=== PATIENT | male | born 1965 | race Caucasian/White ===

== ENCOUNTER 2017-09-08 18:06 | Emergency (ER) | payer OTHER ==
[2017-09-08 18:09] VITALS: BP 140/87; PULSE 90; RESP 14; TEMP 98.2; O2SAT 97
--- NOTE | 2017-09-08 18:45 | RADRPT ---
EXAM DATE/TIME: 09/08/2017 18:34 [facility] COMPARISON: No previous studies available for comparison. INDICATIONS : Palpitations MEDICAL HISTORY : Cardiovascular disease. SURGICAL HISTORY : Coronary artery stent. ENCOUNTER: Initial ACUITY: 1 day PAIN SCORE: 0/10 LOCATION: chest FINDINGS: PA and lateral views of the chest demonstrate a normal-sized cardiac silhouette. There is no effusion , consolidation, or pneumothorax. The bones and soft tissues demonstrate no acute abnormality. There are degenerative changes of the thoracic spine. CONCLUSION: No acute cardiopulmonary abnormality is identified. Zechariah Wick MD on September 08, 2017 at 18:43 Board Certified Radiologist. This report was verified electronically.
[2017-09-08] MEDS ORDERED: METF500T PO (20:21)
[2017-09-08] MEDS ORDERED: GLIP5TAB8 PO (20:21)
[2017-09-08] MEDS ORDERED: VALS320T4 PO (20:21)
[2017-09-08] MEDS ORDERED: ATEN50TA PO (20:21)
--- NOTE | 2017-09-08 20:30 | PD ---
HPI Chief Complaint: Cardiac Complaint Time Seen by Provider: 20:29 Travel History International Travel<30 days: No Contact w/Intl Traveler<30days: No Traveled to known affect area: No History of Present Illness HPI The patient is a 52 year old male who presents to the [facility] emergency department with a history of palpitations and sensation that his heart was " flip flopping" that began at 4:30AM. He denies having a sensation of his heart racing. He denies any chest pain or shortness of breath. He denies ever having a sensation like this previously. He is visiting from out of town. He reports that he was already preparing to go to work when the symptoms began. He reports that he normally drinks 1 cup of coffee daily, however he did not have any this morning. He drinks alcohol only occasionally, none recently. The patient denies consistently taking an aspirin daily. He did not take an aspirin today. The patient's past cardiac history is, located by having a prior history of coronary artery disease with 3 prior stents placed. He reports that his last chemical stress test was done 6 months ago are reportedly unremarkable. She does have a vice president [employer] that he regularly sees back home. Review of systems otherwise, the patient denies having any known recent fevers, cough, congestion, neck pain, abdominal pain, vomiting, diarrhea, urinary symptoms, or neurologic symptoms. The patient has been moving his bowels regularly. His last bowel movement was earlier today. He denies having any blood in his stool or black or tarry stools. PFSH Past Medical History Narrative Medical The patient's past medical history is significant for coronary artery disease with 3 stents, hypertension. His last stress test was 6 months ago, GERD, Barretts esophagus, Diabetes mellitus Heart Rhythm Problems: Yes Cardiovascular Problems: Yes (HTN, CAD) Diabetes: Yes Patient Takes Glucophage: No Past Surgical History Narrative Surgical The patient's past surgical history is significant cardiac cath with stent placed last 2009, nasal fx repair, endoscopy. Cardiac Surgery: Yes (cardiac stents) Social History Alcohol Use: No Tobacco Use: No Substance Use: No Allergies-Medications (Allergen,Severity, Reaction): Coded Allergies: No Known Allergies (Verified Allergy, Unknown, 09/08/17) Reported Meds & Prescriptions Reported Meds & Active Scripts Active Reported Valsartan-Hydrochlorothiazide 320-12.5 Mg Tab 1 Tab PO DAILY Metformin (Metformin HCl) 500 Mg Tab 500 Mg PO DAILY With a meal Glipizide 5 Mg Tab 5 Mg PO BIDAC Take 30 minutes before a meal Atenolol 50 Mg Tab 50 Mg PO DAILY Review of Systems Except as stated in HPI: all other systems reviewed are Neg General / Constitutional: No: Fever Eyes: No: Visual changes HENT: No: Headaches Cardiovascular: No: Chest Pain or Discomfort Respiratory: No: Shortness of Breath Gastrointestinal: No: Nausea, Vomiting, Diarrhea, Abdominal Pain Genitourinary: No: Dysuria Musculoskeletal: No: Pain Skin: No Rash Neurologic: No: Weakness, Focal Abnormalities, Change in Mentation, Slurred Speech, Sensory Disturbance Psychiatric: No: Depression Endocrine: No: Polydipsia Hematologic/Lymphatic: No: Easy Bruising Physical Exam Narrative General: The patient is a well-developed well-nourished male in no acute distress. Head and Neck exam: Head is normocephalic atraumatic. Eyes: EOMI, pupils are equal round and reactive to light. Nose: Midline septum with pink mucous membranes Mouth: Dentition unremarkable. Moist mucus membranes. Posterior oropharynx is not erythematous. No tonsillar hypertrophy. Uvula midline. Airway patent. Neck: No palpable lymphadenopathy. No nuchal rigidity. No thyromegaly. Cardiovascular: Regular rate and rhythm without murmurs, gallops, or rubs. Lungs: Clear to auscultation bilaterally. No wheezes, rhonchi, or rales. Abdomen: Soft, without tenderness to palpation in all 4 quadrants of the abdomen. No guarding, rebound, or rigidity. Normal bowel sounds are audible. No tenderness on palpation of McBurney's point. Extremities: No clubbing, cyanosis, or edema. 2+ pulses in all 4 extremities. No calf tenderness on palpation. Back: No spinous process tenderness to palpation. No costovertebral angle tenderness to palpation. Neurologic Exam: Grossly nonfocal. Skin Exam: No rash noted. Intact skin that is warm and dry. Data Data Last Documented VS Vital Signs Date Time Temp Pulse Resp B/P (MAP) Pulse Ox O2 Delivery O2 Flow Rate FiO2 09/08/17 20:11 97 Room Air 09/08/17 18:09 98.2 90 14 140/87 (104) Orders Orders Electrocardiogram (09/08/17 18:22) Basic Metabolic Panel (Bmp) (09/08/17 18:22) Ckmb (Isoenzyme) Profile (09/08/17 18:22) Complete Blood Count With Diff (09/08/17 18:22) Magnesium (Mg) (09/08/17 18:22) Prothrombin Time / Inr (Pt) (09/08/17 18:22) Act Partial Throm Time (Ptt) (09/08/17 18:22) Troponin I (09/08/17 18:) Chest, Pa & Lat (09/08/17 18:22) Iv Access Insert/Monitor (09/08/17 20:31) Ecg Monitoring (09/08/17 20:31) Oximetry (09/08/17 20:31) Thyroid Stimulating Hormone (09/08/17 19:35) Aspirin Chew (Aspirin Chew) (09/08/17 21:00) CKMB (09/08/17 19:35) CKMB% (09/08/17 19:35) Ed Discharge Order (09/08/17 21:43) Labs Laboratory Tests Test 09/08/17 19:35 White Blood Count 10.3 TH/MM3 Red Blood Count 4.65 MIL/MM3 Hemoglobin 14.4 GM/DL Hematocrit 42.1 % Mean Corpuscular Volume 90.6 FL Mean Corpuscular Hemoglobin 31.0 PG Mean Corpuscular Hemoglobin Concent 34.3 % Red Cell Distribution Width 13.5 % Platelet Count 280 TH/MM3 Mean Platelet Volume 8.2 FL Neutrophils (%) (Auto) 55.3 % Lymphocytes (%) (Auto) 32.4 % Monocytes (%) (Auto) 10.1 % Eosinophils (%) (Auto) 1.4 % Basophils (%) (Auto) 0.8 % Neutrophils # (Auto) 5.7 TH/MM3 Lymphocytes # (Auto) 3.3 TH/MM3 Monocytes # (Auto) 1.0 TH/MM3 Eosinophils # (Auto) 0.1 TH/MM3 Basophils # (Auto) 0.1 TH/MM3 CBC Comment DIFF FINAL Differential Comment Prothrombin Time 11.3 SEC Prothromb Time International Ratio 1.0 RATIO Activated Partial Thromboplast Time 26.8 SEC Blood Urea Nitrogen 14 MG/DL Creatinine 0.96 MG/DL Random Glucose 100 MG/DL Calcium Level 9.3 MG/DL Magnesium Level 1.8 MG/DL Sodium Level 139 MEQ/L Potassium Level 3.5 MEQ/L Chloride Level 104 MEQ/L Carbon Dioxide Level 28.2 MEQ/L Anion Gap 7 MEQ/L Estimat Glomerular Filtration Rate 82 ML/MIN Total Creatine Kinase 201 U/L Creatine Kinase MB 3.6 NG/ML Troponin I LESS THAN 0.02 NG/ML Thyroid Stimulating Hormone 3rd Gen 2.560 uIU/ML MDM Medical Decision Making Medical Screen Exam Complete: Yes Emergency Medical Condition: Yes Medical Record Reviewed: Yes Interpretation(s) Last Impressions Chest X-Ray 09/08/17 1822 Signed Impressions: Service Date/Time: Friday, September 08, 2017 18:34 - CONCLUSION: No acute cardiopulmonary abnormality is identified. Zechariah Wick MD Differential Diagnosis Premature atrial contractions, versus PVCs, versus paroxysmal atrial fibrillation, versus electrolyte derangements, versus acute coronary syndrome Narrative Course During the course of the patients emergency department visit, the patients history, examination, and differential diagnosis were reviewed with the patient. The patient was placed on a panel monitor with oximetry and frequent blood pressure monitoring. The patient had IV access obtained and blood work sent for analysis. The patient had an ECG done on arrival. The patient's ECG reveals a sinus rhythm, heart rate of 72, incomplete right bundle branch block is noted, no acute ST segment elevation, T waves are inverted in lead 3, V1. QRS duration is 109 ms, QTC 402 ms. The patient was initially provided aspirin 324 mg by mouth 1. The patients laboratory studies were reviewed and remarkable for a white count of 10.3, hemoglobin 14.4, platelets 280 with 10.1 monocytes, basic metabolic profile is remarkable for a GFR of 82, CPK 201, CK-MB 3.6, troponin I less than 0.02, TSH 2.56, PT PTT within normal limits. Radiology studies were reviewed and remarkable for a chest x-ray that shows no acute cardiopulmonary abnormality. As the patient is visiting from out of town and reports that he is planning to go back home tomorrow and the patient is currently asymptomatic. The patient will be discharged home to follow-up with his vice president [employer] as an outpatient. The patient is instructed that if he has a recurrence of symptoms he should immediately report to the emergency department an order for an ECG to be done to evaluate for another underlying cardiac arrhythmia. He is also instructed to check his pulse when this occurs to see if it is elevated greater than 100. The patient is instructed to avoid caffeine and alcohol. Follow-up with your vice president [employer] as soon as they return back home. The patient is resting comfortably and feels better, is alert and in no distress. The patients results and examination findings were discussed with the patient. The repeat examination is unremarkable and benign. The history, exam, diagnostic testing, and current condition do not suggest any significant pathology to warrant further testing, continued ED treatment, admission, or surgical evaluation at this point. The vital signs have been stable. The patient does not have uncontrollable pain, intractable vomiting, or other significant symptoms. The patient's condition is stable and appropriate for discharge. The patient will pursue further outpatient evaluation with a primary care physician or other designated or consulting physician as indicated in the discharge instructions. The patient expressed understanding and was agreeable with this plan. Diagnosis Primary Impression: Intermittent palpitations Referrals: [employer] Primary Care Physician Patient Instructions: General Instructions, Heart Palpitations (ED) Additional Instructions: Do not forget to take a low-dose aspirin daily. The patient is instructed that if he has a recurrence of symptoms he should immediately report to the emergency department an order for an ECG to be done to evaluate for another underlying cardiac arrhythmia. He is also instructed to check his pulse when this occurs to see if it is elevated greater than 100. The patient is instructed to avoid caffeine and alcohol. Follow-up with your vice president [employer] as soon as they return back home. Med/Other Pt SpecificInfo: No Change to Meds Disposition: 01 DISCHARGE HOME Condition: Stable Skylar Pulido MD Sep 08, 2017 20:30
[2017-09-08 20:36] LABS: AUTOMATED NEUTROPHIL # 5.7 TH/MM3 (1.8-7.7); BASOPHIL # 0.1 TH/MM3 (0-0.2); BASOPHIL % 0.8 % (0.0-2.0); EOSINOPHIL # 0.1 TH/MM3 (0-0.4); EOSINOPHIL % 1.4 % (0.0-4.0); HEMATOCRIT 42.1 % (39.0-51.0); HEMO FLAGS DIFF FINAL; LYMPH % 32.4 % (9.0-44.0); LYMPHOCYTE # 3.3 TH/MM3 (1.0-4.8); MEAN CELL VOLUME 90.6 FL (80.0-100.0); MEAN CORPUSCULAR HGB CONC 34.3 % (32.0-36.0); MONO % 10.1 % (0.0-8.0); NEUT % 55.3 % (16.0-70.0); PLATELET COUNT 280 TH/MM3 (150-450); RED BLOOD COUNT 4.65 MIL/MM3 (4.50-5.90); RED CELL DISTRIBUTION WIDTH 13.5 % (11.6-17.2); WHITE BLOOD COUNT 10.3 TH/MM3 (4.0-11.0)
[2017-09-08 20:56] LABS: ANION GAP 7 MEQ/L (5-15); BICARBONATE 28.2 MEQ/L (21.0-32.0); BLOOD UREA NITROGEN 14 MG/DL (7-18); CHLORIDE 104 MEQ/L (98-107); GLOMERULAR FILTRATION RATE 82 ML/MIN (>89); MAGNESIUM 1.8 MG/DL (1.5-2.5); POTASSIUM 3.5 MEQ/L (3.5-5.1); SODIUM (NA) 139 MEQ/L (136-145)
[2017-09-08 20:59] LABS: APTT (PATIENT) 26.8 SEC (24.3-30.1); PROTHROMBIN TIME - PATIENT 11.3 SEC (9.8-11.6)
[2017-09-08] MEDS ORDERED: ASPIRIN 81 MG CHEW TAB CHEW ONE (21:00)
[2017-09-08 21:05] LABS: CREATINE KINASE 201 U/L (39-308)
[2017-09-08 21:17] LABS: CKMB 3.6 NG/ML (0.5-3.6)
--- NOTE | 2017-09-09 18:34 | EKG ---
Date Performed: 09/08/2017 Time Performed: 19:52:45 PTAGE: 52 years EKG: Sinus rhythm INCOMPLETE RIGHT BUNDLE BRANCH BLOCK NONSPECIFIC T-WAVE ABNORMALITY BORDERLINE ECG NO PREVIOUS TRACING DOCTOR: Arlene Marcelo Interpretating Date/Time 09/09/2017 18:32:46
== END 2017-09-08 22:56 | disposition home or self-care (01) ==
LOC: NEPC 18:06
DX: R00.2 Palpitations (principal); E11.9 Type 2 diabetes mellitus without complications; I10 Essential (primary) hypertension; I25.10 Atherosclerotic heart disease of native coronary artery without angina pectoris; I45.10 Unspecified right bundle-branch block; Z79.84 Long term (current) use of oral hypoglycemic drugs; Z79.899 Other long term (current) drug therapy; Z95.5 Presence of coronary angioplasty implant and graft
CPT/HCPCS: 71020; 80048; 82550; 82552; 83735; 84443; 84484; 85025; 85610; 85730; 93005

== ENCOUNTER 2017-12-06 20:52 | Observation (INO) | payer OTHER ==
[2017-12-06] VITALS (8 sets, daily range): BP systolic 113–179; BP diastolic 61–93; PULSE 75–99; RESP 18–20; TEMP 98; O2SAT 95–98
[~2017-12-06] VITALS: Ht 185.4 cm; Wt 115.0 kg
[~2017-12-06 20:52] MED LIST: ATEN50TA PO; GLIP5TAB8 PO; METF500T PO; VALS320T4 PO
--- NOTE | 2017-12-06 21:13 | PD ---
HPI Chief Complaint: Chest Pain Time Seen by Provider: 21:01 Travel History International Travel<30 days: No Contact w/Intl Traveler<30days: No Traveled to known affect area: No History of Present Illness HPI 52-year-old male with history of coronary artery disease with 3 stents, hypertension, hyperlipidemia, diabetes, presents by private vehicle for evaluation of chest pain. Symptoms started at 5 PM this evening when he was standing in line at a phone store. He is currently staying at a hotel. He reports that he went home and tried to relax but the pain persisted and this is what prompted evaluation. He is currently experiencing mild pain. He describes it as a pressure in the left side of his chest that radiates into the proximal left arm. He reports that he has had similar chest pain in the past when he had his stents placed. He endorses generalized head pressure today as well. He reports he has been having intermittent headaches for the past 2 weeks. No aggravating or alleviating factors. He is supposed to take aspirin on a daily basis but he forgets sometimes, did not take any today. He denies shortness of breath, nausea or vomiting, diaphoresis, weakness, blurred vision. He believes that his last stress test was 2 years ago. 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 He has been in town working at a local [employer] for the past 7 months. He has no other complaints at this time. [facility] Past Medical History Heart Rhythm Problems: Yes Cardiovascular Problems: Yes (HTN, CAD) Diabetes: Yes Patient Takes Glucophage: Yes Hypertension: Yes Immunizations Current: Yes Tetanus Vaccination: < 5 Years Influenza Vaccination: Yes Past Surgical History Cardiac Surgery: Yes (cardiac stents) Social History Alcohol Use: No Tobacco Use: No Substance Use: No Allergies-Medications (Allergen,Severity, Reaction): Coded Allergies: celecoxib (Verified Allergy, Unknown, 12/06/17) rofecoxib (Verified Allergy, Unknown, 12/06/17) Reported Meds & Prescriptions Reported Meds & Active Scripts Active Reported Aspirin 325 Mg Tab 325 Mg PO DAILY Pantoprazole (Pantoprazole Sodium) 40 Mg Tab 1 Tab PO DAILY Metformin (Metformin HCl) 1,000 Mg Tab 1,000 Mg PO DAILY With a meal Valsartan-Hctz 320-25 mg Tab (Valsartan/Hydrochlorothiazide) 320 Mg-25 Mg Tablet 1 Tab PO DAILY Glipizide 5 Mg Tab 5 Mg PO BIDAC Take 30 minutes before a meal Atenolol 50 Mg Tab 50 Mg PO DAILY Review of Systems Except as stated in HPI: all other systems reviewed are Neg Physical Exam Narrative GENERAL: Well-developed well-nourished male in no acute distress. SKIN: Warm and dry. HEAD: Atraumatic. Normocephalic. EYES: Pupils equal and round. No scleral icterus. No injection or drainage. ENT: No nasal bleeding or discharge. Mucous membranes pink and moist. NECK: Trachea midline. No JVD. CARDIOVASCULAR: Regular rate and rhythm. No murmur appreciated. RESPIRATORY: No accessory muscle use. Clear to auscultation. Breath sounds equal bilaterally. GASTROINTESTINAL: Abdomen soft, non-tender, nondistended. Hepatic and splenic margins not palpable. MUSCULOSKELETAL: No obvious deformities. No clubbing. No cyanosis. No edema. NEUROLOGICAL: Awake and alert. No obvious cranial nerve deficits. Motor grossly within normal limits. Normal speech. PSYCHIATRIC: Appropriate mood and affect; insight and judgment normal. Data Data Last Documented VS Vital Signs Date Time Temp Pulse Resp B/P (MAP) Pulse Ox O2 Delivery O2 Flow Rate FiO2 12/06/17 22:10 81 18 115/82 (93) 95 Room Air 12/06/17 20:55 98.0 Orders Orders Electrocardiogram (12/06/17 21:09) Basic Metabolic Panel (Bmp) (12/06/17 21:09) Ckmb (Isoenzyme) Profile (12/06/17 21:09) Complete Blood Count With Diff (12/06/17 21:09) Magnesium (Mg) (12/06/17 21:09) Prothrombin Time / Inr (Pt) (12/06/17 21:09) Act Partial Throm Time (Ptt) (12/06/17 21:09) Troponin I (12/06/17 21:09) Chest, Single Ap (12/06/17 21:09) Ecg Monitoring (12/06/17 21:09) Bilateral Bp Monitoring (12/06/17 21:09) Iv Access Insert/Monitor (12/06/17 21:09) Oximetry (12/06/17 21:09) Oxygen Administration (12/06/17 21:09) Sodium Chloride 0.9% Flush (Ns Flush) (12/06/17 21:15) Nitroglycerin Sl (Nitrostat Sl) (12/06/17 21:15) Ct Brain W/O Iv Contrast(Rout) (12/06/17 ) Aspirin Chew (Aspirin Chew) (12/06/17 21:45) CKMB (12/06/17 21:44) CKMB% (12/06/17 21:44) Admit Order (Ed Use Only) (12/06/17 22:47) Acetaminophen (Tylenol) (12/06/17 23:00) Activity Bed Rest With Brp (12/06/17 22:47) Vital Signs (Adult) Q4H (12/06/17 22:47) Cardiac Rhythm .As Directed (12/06/17 22:47) Notify Dr: Other .PRN (12/06/17 22:47) Notify Parameters (12/06/17 22:47) Resp Oxygen Nasal Cannula (12/06/17 ) Ckmb (Isoenzyme) Profile (12/07/17 00:44) Ckmb (Isoenzyme) Profile (12/07/17 03:44) Troponin I (12/07/17 00:44) Troponin I (12/07/17 03:44) Electrocardiogram (12/07/17 00:44) Electrocardiogram (12/07/17 03:44) ^ Obtain (12/06/17 22:47) Sodium Chloride 0.9% Flush (Ns Flush) (12/06/17 23:00) Sodium Chloride 0.9% Flush (Ns Flush) (12/07/17 09:00) Npo After Midnight W/ Po Meds (12/07/17 Breakfast) Labs Laboratory Tests Test 12/06/17 21:44 White Blood Count 8.6 TH/MM3 Red Blood Count 4.80 MIL/MM3 Hemoglobin 15.0 GM/DL Hematocrit 42.8 % Mean Corpuscular Volume 89.0 FL Mean Corpuscular Hemoglobin 31.2 PG Mean Corpuscular Hemoglobin Concent 35.0 % Red Cell Distribution Width 13.6 % Platelet Count 257 TH/MM3 Mean Platelet Volume 7.8 FL Neutrophils (%) (Auto) 58.8 % Lymphocytes (%) (Auto) 28.1 % Monocytes (%) (Auto) 10.9 % Eosinophils (%) (Auto) 1.5 % Basophils (%) (Auto) 0.7 % Neutrophils # (Auto) 5.1 TH/MM3 Lymphocytes # (Auto) 2.4 TH/MM3 Monocytes # (Auto) 0.9 TH/MM3 Eosinophils # (Auto) 0.1 TH/MM3 Basophils # (Auto) 0.1 TH/MM3 CBC Comment DIFF FINAL Differential Comment Prothrombin Time 11.6 SEC Prothromb Time International Ratio 1.1 RATIO Activated Partial Thromboplast Time 27.5 SEC Blood Urea Nitrogen 14 MG/DL Creatinine 1.21 MG/DL Random Glucose 158 MG/DL Calcium Level 9.1 MG/DL Magnesium Level 2.0 MG/DL Sodium Level 140 MEQ/L Potassium Level 3.6 MEQ/L Chloride Level 107 MEQ/L Carbon Dioxide Level 26.7 MEQ/L Anion Gap 6 MEQ/L Estimat Glomerular Filtration Rate 63 ML/MIN Total Creatine Kinase 348 U/L Creatine Kinase MB 3.8 NG/ML Creatine Kinase MB % 1.1 % Troponin I LESS THAN 0.02 NG/ML MDM Medical Decision Making Medical Screen Exam Complete: Yes Emergency Medical Condition: Yes Medical Record Reviewed: Yes Differential Diagnosis Angina, acute coronary syndrome, aortic dissection, pleurisy, pericarditis, myocarditis, hypertensive urgency, hypertensive emergency Narrative Course The patient was placed on ECG monitoring pulse oximetry. A 12-lead EKG was obtained revealing sinus rhythm, incomplete right bundle branch block, no acute ST changes. T-wave inversion noted in V6. Plan is for lab work, chest x-ray, CT the brain. Sublingual nitroglycerin has been ordered. CT the brain came back normal and therefore full dose aspirin was ordered. Chest x-ray reveals no acute abnormalities. CBC, BMP unremarkable. Initial set of cardiac enzymes are negative. Given the patient's risk factors, symptoms, the patient will be admitted to the chest pain center for serial cardiac enzymes and rule out purposes. He is agreeable. Diagnosis Primary Impression: Chest pain Admitting Information Admitting Physician Requests: Brian Padilla Dec 06, 2017 21:13
[2017-12-06] MEDS ORDERED: SODIUM CHLORIDE 0.9% FLUSH 10 ML FLUSH IVF PRN (21:15)
--- NOTE | 2017-12-06 21:39 | RADRPT ---
EXAM DATE/TIME: 12/06/2017 21:18 [facility] COMPARISON: CHEST PA & LAT, September 08, 2017, 18:34. INDICATIONS : Chest pain. MEDICAL HISTORY : Hypertension. Diabetes. SURGICAL HISTORY : Cardiac stent. ENCOUNTER: Initial ACUITY: 1 day PAIN SCORE: 10/10 LOCATION: Bilateral chest FINDINGS: The lungs are clear without infiltrate, nodule, or mass. There is no appreciable pleural effusion fo r technique. Heart and mediastinum are unremarkable. CONCLUSION: No acute cardiopulmonary disease. Yolande Cross MD on December 06, 2017 at 21:37 Board Certified Radiologist. This report was verified electronically.
--- NOTE | 2017-12-06 21:40 | RADRPT ---
EXAM DATE/TIME: 12/06/2017 21:25 [facility] COMPARISON: No previous studies available for comparison. INDICATIONS : Headaches. RADIATION DOSE: 69.15 CTDIvol (mGy) MEDICAL HISTORY : Cardiovascular disease. Hypertension. Diabetes mellitus type 2. SURGICAL HISTORY : Coronary artery stent. ENCOUNTER: Initial ACUITY: 1 day PAIN SCALE: 7/10 LOCATION: Bilateral cranial TECHNIQUE: Multiple contiguous axial images were obtained of the head. Using automated exposure control and adj ustment of the mA and/or kV according to patient size, radiation dose was kept as low as reasonably a chievable to obtain optimal diagnostic quality images. DICOM format image data is available electro nically for review and comparison. FINDINGS: There is no evidence for intracranial hemorrhage, mass effect, mass lesions, edema, or extra-axial fl uid collections. The visualized bony structures appear intact. The ventricles are normal size for t he patient's age. There are no signs of acute infarction for technique. CONCLUSION: Unremarkable study. Yolande Cross MD on December 06, 2017 at 21:37 Board Certified Radiologist. This report was verified electronically.
[2017-12-06] MEDS ORDERED: ASPIRIN 81 MG CHEW TAB CHEW ONE (21:45)
[2017-12-06] MEDS ORDERED: METF1000 PO (21:56)
[2017-12-06] MEDS ORDERED: PANT40TA3 PO (21:56)
[2017-12-06] MEDS ORDERED: VALS320T6 PO (21:56)
[2017-12-06] MEDS ORDERED: ASPI-183 PO (21:56)
[2017-12-06 21:57] LABS: AUTOMATED NEUTROPHIL # 5.1 TH/MM3 (1.8-7.7); BASOPHIL # 0.1 TH/MM3 (0-0.2); BASOPHIL % 0.7 % (0.0-2.0); EOSINOPHIL # 0.1 TH/MM3 (0-0.4); EOSINOPHIL % 1.5 % (0.0-4.0); HEMATOCRIT 42.8 % (39.0-51.0); LYMPH % 28.1 % (9.0-44.0); LYMPHOCYTE # 2.4 TH/MM3 (1.0-4.8); MEAN CORPUSCULAR HEMOGLOBIN 31.2 PG (27.0-34.0); MEAN PLATELET VOLUME 7.8 FL (7.0-11.0); MONO % 10.9 % (0.0-8.0); MONOCYTE # 0.9 TH/MM3 (0-0.9); NEUT % 58.8 % (16.0-70.0); PLATELET COUNT 257 TH/MM3 (150-450); RED CELL DISTRIBUTION WIDTH 13.6 % (11.6-17.2); WHITE BLOOD COUNT 8.6 TH/MM3 (4.0-11.0)
[2017-12-06] MEDS: NITROGLYCERIN 0.4 MG SL 25 TABS/BTL SL SCH ×3 (22:03→22:13)
[2017-12-06 22:08] LABS: BICARBONATE 26.7 MEQ/L (21.0-32.0); BLOOD UREA NITROGEN 14 MG/DL (7-18); CALCIUM 9.1 MG/DL (8.5-10.1); CHLORIDE 107 MEQ/L (98-107); CREATININE 1.21 MG/DL (0.60-1.30); GLOMERULAR FILTRATION RATE 63 ML/MIN (>89); GLUCOSE,RANDOM 158 MG/DL (74-106); SODIUM (NA) 140 MEQ/L (136-145)
[2017-12-06 22:09] LABS: INTERNATIONAL NORMALIZED RATIO 1.1 RATIO; PROTHROMBIN TIME - PATIENT 11.6 SEC (9.8-11.6)
[2017-12-06 22:12] LABS: TROPONIN I LESS THAN 0.02 NG/ML (0.02-0.05)
[2017-12-06] MEDS ORDERED: ACETAMINOPHEN 325 MG TAB PO ONE (23:00)
[2017-12-06] MEDS ORDERED: SODIUM CHLORIDE 0.9% FLUSH 10 ML FLUSH IV FLUSH PRN (23:00)
[2017-12-07 00:34] VITALS: BP 105/57; PULSE 69; RESP 18; TEMP 98.2; O2SAT 96
[2017-12-07 02:20] LABS: TROPONIN I LESS THAN 0.02 NG/ML (0.02-0.05)
[2017-12-07 04:05] VITALS: BP 110/68; PULSE 70; RESP 17; TEMP 98; O2SAT 97
[2017-12-07 04:45] LABS: TROPONIN I LESS THAN 0.02 NG/ML (0.02-0.05)
[2017-12-07 07:24] VITALS: PULSE 63
[2017-12-07 08:08] VITALS: BP 133/85; PULSE 72; RESP 18; TEMP 98.1; O2SAT 98
[2017-12-07] MEDS ORDERED: GLUCAGON 1 MG/ML VIAL OTHER PRN (08:30)
[2017-12-07] MEDS ORDERED: DEXTROSE 50% IN WATER 50 ML VIAL(D50) IV PUSH PRN (08:30)
[2017-12-07] MEDS ORDERED: HYDROCHLOROTHIAZIDE PO SCH (09:00)
[2017-12-07] MEDS ORDERED: VALSARTAN 160 MG TAB PO SCH (09:00)
[2017-12-07] MEDS ORDERED: PANTOPRAZOLE SOD 40 MG DELAYED RELEASE TAB PO SCH (09:00)
[2017-12-07] MEDS ORDERED: SODIUM CHLORIDE 0.9% FLUSH 10 ML FLUSH IV FLUSH SCH (09:00)
[2017-12-07] MEDS ORDERED: HYDROCHLOROTHIAZIDE 25 MG TAB PO SCH (09:00)
[2017-12-07] MEDS ORDERED: ASPIRIN 325 MG TAB PO SCH (09:00)
[2017-12-07] MEDS ORDERED: ATENOLOL 50 MG TAB PO SCH ×2 (09:00→16:00)
[2017-12-07] MEDS ORDERED: VALSARTAN PO SCH (09:00)
[2017-12-07] MEDS ORDERED: REGADENOSON INJ 0.4 MG/5 ML SYR ONE (09:47)
--- NOTE | 2017-12-07 10:12 | HHI.HP ---
HPI Primary Care Physician No Primary Care Physician Chief Complaint Chest pain History of Present Illness This is a 52-year-old male with history of CAD, hypertension, hyperlipidemia, diabetes that presents to ED with a complaint of chest discomfort. Days he developed a chest pressure yesterday that radiated down his left arm while he was shopping for a new phone. Discomfort was a 4 out of 10. Denies shortness of breath, nausea, or diaphoresis. States it lasted for several hours. Found nothing to worsen. Was given sublingual nitroglycerin about for 5 hours into the discomfort which she states helped a little bit but did not resolve it. Eventually went away on its own overnight. He developed a headache after getting sublingual nitroglycerin. He has history of heart disease and states that he has 3 stents. That occurred over 2 cardiac catheterizations in 2001 in [place]. He is here on vacation. States his symptoms that he had last night are similar to the symptoms that he had when he needed stenting. States that his last stress test was 2 years ago that was okay. Last cardiac catheterization was about 6 years ago and he believes that he was told that one of the stents are starting to show an area of blockage but no intervention occurred. Currently not on statin therapy. States Lipitor caused myalgias and a different medication was never started. Also states he forgets to take aspirin most of the time. Denies recent illness. Denies fevers or chills. Review of Systems General: Patient denies fevers, chills recent, and recent travel HEENT: Patient denies headache, sore throat, difficulty swallowing. Cardiovascular: Has the chest discomfort as mentioned above. Denies sensation of heart beating rapidly or irregularly. No syncope. Denies diaphoresis. Respiratory: Denies shortness of breath or inspirational chest discomfort. Denies coughing wheezing or hemoptysis. GI: Patient denies nausea, vomiting, diarrhea, abdominal pain, bloody stools. Musculoskeletal: Patient denies joint pain or edema. Denies calf pain or edema. Neurovascular: Patient denies numbness, tingling, weakness in extremities. Denies headache. Endocrine: Denies polyuria and polydipsia. Hematologic: Denies easy bruising. Skin: Denies rash or itching. Past Family Social History Allergies: Coded Allergies: celecoxib (Verified Allergy, Unknown, 12/06/17) rofecoxib (Verified Allergy, Unknown, 12/06/17) Past Medical History CAD with 3 stents. Hypertension, hyperlipidemia, diabetes, and GERD. Past Surgical History Heart catheterizations. Reported Medications Reported Meds & Active Scripts Active Reported Aspirin 325 Mg Tab 325 Mg PO DAILY Pantoprazole (Pantoprazole Sodium) 40 Mg Tab 1 Tab PO DAILY Metformin (Metformin HCl) 1,000 Mg Tab 1,000 Mg PO DAILY With a meal Valsartan-Hctz 320-25 mg Tab (Valsartan/Hydrochlorothiazide) 320 Mg-25 Mg Tablet 1 Tab PO DAILY Glipizide 5 Mg Tab 5 Mg PO BIDAC Take 30 minutes before a meal Atenolol 50 Mg Tab 50 Mg PO DAILY Active Ordered Medications Current Medications Medications (Trade) Dose Ordered Sig/Ayla Route Start Time Stop Time Status Last Admin (NS Flush) 2 ml UNSCH PRN IV FLUSH 12/06/17 23:00 (NS Flush) 2 ml BID IV FLUSH 12/07/17 09:00 12/07/17 09:14 (NovoLOG SUPPLEMENTAL SCALE) 1 ACHS SLIDING SCALE SQ 12/07/17 12:00 (D50w (Vial) Inj) 50 ml UNSCH PRN IV PUSH 12/07/17 08:30 (Glucagon Inj) 1 mg UNSCH PRN OTHER 12/07/17 08:30 (Aspirin) 325 mg DAILY PO 12/07/17 09:00 12/07/17 09:14 (Protonix) 40 mg DAILY PO 12/07/17 09:00 12/07/17 09:14 (Diovan) 320 mg DAILY PO 12/07/17 09:00 12/07/17 09:14 (Hydrodiuril) 25 mg DAILY PO 12/07/17 09:00 12/07/17 09:12 (Tenormin) 50 mg DAILY@1600 PO 12/07/17 16:00 Family History His father age 37 of a myocardial infarction. His brother was a few years old him just had a bypass. Social History Lifetime nonsmoker. Denies alcohol or illicit drugs. Physical Exam Vital Signs Vital Signs Date Time Temp Pulse Resp B/P (MAP) Pulse Ox O2 Delivery O2 Flow Rate FiO2 12/07/17 08:08 98.1 72 18 133/85 (101) 98 12/07/17 07:24 63 12/07/17 04:05 98.0 70 17 110/68 (82) 97 12/07/17 01:23 18 12/07/17 00:34 98.2 69 18 105/57 (73) 96 12/06/17 23:45 75 18 136/67 (90) 96 12/06/17 23:00 96 12/06/17 23:00 75 18 130/68 (88) 96 Room Air 12/06/17 22:30 78 18 124/71 (88) 95 Room Air 12/06/17 22:10 81 18 115/82 (93) 95 Room Air 12/06/17 22:05 90 20 113/61 (78) 95 Room Air 12/06/17 22:00 79 20 114/65 (81) 96 Room Air 12/06/17 21:45 100 Room Air 12/06/17 21:45 86 20 127/70 (89) 98 Room Air 12/06/17 21:05 Room Air 12/06/17 20:55 98.0 99 18 179/93 (121) 97 Room Air Physical Exam GENERAL: This is a well-nourished, well-developed patient, in no apparent distress. Patient speaks in clear complete sentences. Patient is pleasant. HEENT: Head is atraumatic and normocephalic. Neck is supple without lymphadenopathy and trachea is midline. No JVD or carotid bruits. CARDIOVASCULAR: Regular rate and rhythm without murmurs, gallops, or rubs. RESPIRATORY: Clear to auscultation. Breath sounds equal bilaterally. No wheezes , rales, or rhonchi. Chest wall is nontender. No use of accessory muscles. GASTROINTESTINAL: Abdomen is nontender, nondistended. Abdomen soft. No obvious pulsatile mass or bruit. No CVA tenderness. Strong femoral pulses bilaterally. Normal bowel sounds in all quadrants. MUSCULOSKELETAL: Patient is moving upper and lower extremities freely. No calf tenderness or edema, no Homans sign. Strong pulses in upper and lower extremities. NEUROLOGICAL: Patient is alert and oriented. Cranial nerves 2-12 are grossly intact. No focal deficits and speech is clear. SKIN: No rash and turgor is normal. Laboratory Laboratory Tests Test 12/06/17 21:44 12/07/17 01:00 12/07/17 03:39 White Blood Count 8.6 Red Blood Count 4.80 Hemoglobin 15.0 Hematocrit 42.8 Mean Corpuscular Volume 89.0 Mean Corpuscular Hemoglobin 31.2 Mean Corpuscular Hemoglobin Concent 35.0 Red Cell Distribution Width 13.6 Platelet Count 257 Mean Platelet Volume 7.8 Neutrophils (%) (Auto) 58.8 Lymphocytes (%) (Auto) 28.1 Monocytes (%) (Auto) 10.9 Eosinophils (%) (Auto) 1.5 Basophils (%) (Auto) 0.7 Neutrophils # (Auto) 5.1 Lymphocytes # (Auto) 2.4 Monocytes # (Auto) 0.9 Eosinophils # (Auto) 0.1 Basophils # (Auto) 0.1 CBC Comment DIFF FINAL Differential Comment Prothrombin Time 11.6 Prothromb Time International Ratio 1.1 Activated Partial Thromboplast Time 27.5 Blood Urea Nitrogen 14 Creatinine 1.21 Random Glucose 158 Calcium Level 9.1 Magnesium Level 2.0 Sodium Level 140 Potassium Level 3.6 Chloride Level 107 Carbon Dioxide Level 26.7 Anion Gap 6 Estimat Glomerular Filtration Rate 63 Total Creatine Kinase 348 297 285 Creatine Kinase MB 3.8 3.8 3.1 Creatine Kinase MB % 1.1 Troponin I LESS THAN 0.02 LESS THAN 0.02 LESS THAN 0.02 Result Diagram: 12/06/17214312/06/172143 Caprini VTE Risk Assessment Caprini VTE Risk Assessment: No/Low Risk (score <= 1) Caprini Risk Assessment Model Point Value = 1 Point Value = 2 Point Value = 3 Point Value = 5 Age 41-60 Minor surgery BMI > 25 kg/m2 Swollen legs Varicose veins or History of unexplained or recurrent spontaneous Oral contraceptives or hormone replacement Sepsis (< 1 month) Serious lung disease, including pneumonia (< 1 month) Abnormal pulmonary function Acute myocardial infarction Congestive heart failure (< 1 month) History of inflammatory bowel disease Medical patient at bed rest Age 61-74 Arthroscopic surgery Major open surgery (> 45 min) Laparoscopic surgery (> 45 min) Malignancy Confined to bed (> 72 hours) Immobilizing plaster cast Central venous access Age >= 75 History of VTE Family history of VTE Factor V Leiden Prothrombin [id number] Lupus anticoagulant Anticardiolipin antibodies Elevated serum homocysteine Heparin-induced thrombocytopenia Other congenital or acquired thrombophilia Stroke (< 1 month) Elective arthroplasty Hip, pelvis, or leg fracture Acute spinal cord injury (< 1 month) Prophylaxis Regimen Total Risk Factor Score Risk Level Prophylaxis Regimen 0-1 Low Early ambulation 2 Moderate Order ONE of the following: *Sequential Compression Device (SCD) *Heparin 5000 units SQ BID 3-4 Higher Order ONE of the following medications: *Heparin 5000 units SQ TID *Enoxaparin/Lovenox 40 mg SQ daily (WT < 150 kg, CrCl > 30 mL/min) *Enoxaparin/Lovenox 30 mg SQ daily (WT < 150 kg, CrCl > 10-29 mL/min) *Enoxaparin/Lovenox 30 mg SQ BID (WT < 150 kg, CrCl > 30 mL/min) AND/OR *Sequential Compression Device (SCD) 5 or more Highest Order ONE of the following medications: *Heparin 5000 units SQ TID (Preferred with Epidurals) *Enoxaparin/Lovenox 40 mg SQ daily (WT < 150 kg, CrCl > 30 mL/min) *Enoxaparin/Lovenox 30 mg SQ daily (WT < 150 kg, CrCl > 10-29 mL/min) *Enoxaparin/Lovenox 30 mg SQ BID (WT < 150 kg, CrCl > 30 mL/min) AND *Sequential Compression Device (SCD) Assessment and Plan Assessment and Plan * Chest pain: Patient has history of CAD with history of stents. He had serial cardiac enzymes and EKGs for ruling out purposes and will be seen by Dr. Palmer of cardiology and the chest pain center. He will undergo a Lexiscan myocardial perfusion stress test and it nonischemic will likely be discharged home with instruction to follow-up with PCP and cardiology. He should discuss his lipid status and management with his contract negotiator. Return to ED for interval issues. * Hypertension: Continue current medication. * Diabetes: Patient will be on sliding scale insulin coverage. He will be on diabetic diet. He should resume medication at discharge. * Hyperlipidemia: Currently he is on a medication. Needs to discuss this with his contract negotiator. * GERD: Continue current medication. Patient is stable at this time. He is agreeable to this plan. Jeremy Stephens Dec 07, 2017 10:12
--- NOTE | 2017-12-07 11:08 | RADRPT ---
EXAM DATE/TIME: 12/07/2017 09:39 [facility] COMPARISON: No previous studies available for comparison. INDICATIONS : Left chest pain. Angina. Coronary artery disease. DOSE: 35 mCi Tc99m Myoview at stress. 11 mCi Tc99m Myoview at rest. 0.4 mg Lexiscan STRESS SYMPTOMS: Head pressure. EJECTION FRACTION: 53% MEDICAL HISTORY : Hypertension. SURGICAL HISTORY : Coronary artery stent. ENCOUNTER: Initial ACUITY: 1 day PAIN SCALE: 3/10 LOCATION: Left chest TECHNIQUE: The patient underwent pharmacologic stress with infusion of prescribed dose. Continuous ECG tracing was monitored during stress. Gated SPECT imaging was performed after stress and conventional SPECT i maging was performed at rest. The examination was performed on a SPECT/CT scanner, both attenuation and non-corrected datasets were reviewed. FINDINGS: DISTRIBUTION: The maximum perfused segment at stress is in the anterolateral wall. PERFUSION STUDY: Small area of mild reversibility within the lateral wall. GATED STUDY: There is intact wall motion and thickening without hypokinetic or dyskinetic segments. CONCLUSION: 1. Small area of mild reversibility within the lateral wall could be minimal ischemia. 2. Extra fraction 53%. RISK CATEGORY: Intermediate (1-3% Annual Mortality Rate) Sriram Castellanos MD on December 07, 2017 at 11:03 Board Certified Radiologist. This report was verified electronically.
[2017-12-07 11:40] VITALS: BP 135/87; PULSE 74; RESP 18; TEMP 98; O2SAT 97
[2017-12-07] MEDS ORDERED: INSULIN ASPART SUPPLEMENTAL SCALE SQ SCH (12:00)
[2017-12-07] MEDS ORDERED: NITROGLYCERIN 2% OINT 1 GM PACKET TOPICAL SCH (12:45)
[2017-12-07] MEDS ORDERED: METOPROLOL TARTRATE 50 MG TAB PO SCH (13:15)
--- NOTE | 2017-12-07 14:07 | TR ---
Date Performed: 12/07/2017 Time Performed: 10:00:46 DOCTOR: Justin Palmer DRUG LIST: CLINICAL HISTORY: REASON FOR TEST: REASON FOR ENDING: OBSERVATION: CONCLUSION: Lexiscan stress test was performed under standard four minute protocol. Radionuclid e was injected one minute prior to ending the test. No electrocardiographic abormalities were present to suggest ischemia. Nuclear imaging and interpretation are pending. COMMENTS:
--- NOTE | 2017-12-07 14:13 | EKG ---
Date Performed: 12/07/2017 Time Performed: 00:46:37 PTAGE: 52 years EKG: Sinus rhythm POSSIBLE RIGHT VENTRICULAR CONDUCTION DELAY BORDERLINE ECG PREVIOUS TRACING : 12/06/2017 21.09 Since previous tracing, no significant change noted DOCTOR: Justin Palmer Interpretating Date/Time 12/07/2017 14:12:59
--- NOTE | 2017-12-07 14:15 | EKG ---
Date Performed: 12/06/2017 Time Performed: 21:09:14 PTAGE: 52 years EKG: Sinus rhythm INCOMPLETE RIGHT BUNDLE BRANCH BLOCK NONSPECIFIC ST & T-WAVE ABNORMALITY BORDERLINE ECG PREVIOUS TRACING : 09/08/2017 19.52 Since previous tracing, no significant change noted DOCTOR: Justin Palmer Interpretating Date/Time 12/07/2017 14:14:17
--- NOTE | 2017-12-07 14:18 | EKG ---
Date Performed: 12/07/2017 Time Performed: 03:52:21 PTAGE: 52 years EKG: Sinus rhythm POSSIBLE RIGHT VENTRICULAR CONDUCTION DELAY BORDERLINE ECG PREVIOUS TRACING : 12/07/2017 00.46 Since previous tracing, no significant change noted DOCTOR: Justin Palmer Interpretating Date/Time 12/07/2017 14:17:05
--- NOTE | 2017-12-07 14:25 | MB ---
cc: RUDDY SILVA MD DATE OF CONSULTATION: 12/07/2017. REASON FOR CONSULTATION: Chest pain with slightly abnormal nuclear stress test. HISTORY OF PRESENT ILLNESS: The patient is a very pleasant 52-year-old gentleman who lives in [place], though may be moving to the area, who has a history of coronary disease with several prior stents. Yesterday he says he felt somewhat lightheaded with a vague central chest discomfort. He presented to the emergency department and was ruled out for MT and admitted to the chest pain center. He had a nuclear stress test which was slightly abnormal, and thus I was consulted. Currently the patient is feeling well without any residual symptoms. He has no chest pain, shortness breath, lightheadedness, dizziness. PAST MEDICAL HISTORY: 1. Coronary artery disease. 2. Diabetes. 3. Hypertension. MEDICATIONS: Home medications included: 1. Aspirin. 2. Protonix. 3. Metformin. 4. Valsartan / hydrochlorothiazide. 5. Glipizide. 6. Atenolol. PHYSICAL EXAMINATION: VITAL SIGNS: Afebrile, pulse 74, respiratory rate 18, blood pressure 155/87, satting 97% on room air. GENERAL: In general, a pleasant overweight gentleman in no distress. NECK: No jugular venous distention. LUNGS: Clear to auscultation bilaterally. CARDIOVASCULAR: Regular rate and rhythm. No murmurs appreciated. ABDOMEN: Benign. EXTREMITIES: No edema. LABORATORY DATA: Sodium 140, potassium 3.6, chloride 107, bicarbonate 26.7, BUN 14, creatinine 1.21, glucose 158. Cardiac enzymes are negative times three. White count 8.6, hematocrit 42.8, platelet count 357,000. INR is 1.1. IMAGING STUDIES: Chest x-ray showed no acute cardiopulmonary disease. Nuclear stress test was read as a small area of mild reversibility within the lateral wall which could be minimal ischemia with a normal ejection fraction. EKGS: EKG showed sinus rhythm without any acute S-T or T-wave changes. IMPRESSION: 1. Minimally abnormal stress test: The patient had a stress test which was read as a small / mild reversibility in the lateral wall indicative of a possible minimal ischemia. Given that the patient is chest pain-free, I did discuss the possibilities of cardiac catheterization as an inpatient versus medical therapy. The patient wishes to avoid cardiac catheterization if possible and wishes to pursue medical therapy. Given the above, I think that is reasonable. I will add Imdur 30 milligrams daily to his regimen. I have also instructed him to return to the emergency department with any further chest pain. I also gave him my card and he can call me at the office while he is in town should any symptoms occur. Thus he can be discharged home with the additional isosorbide and the instructions above. Thank you again for the opportunity to participate in this patient's care. MD HAYLIE Levi/WOLFGANG /1:55 PM /2:15 PM
[2017-12-07] MEDS ORDERED: ATOR40TA16 PO (15:19)
[2017-12-07] MEDS ORDERED: METO-309 PO (15:19)
[2017-12-07] MEDS ORDERED: ISOS30TA3 PO (15:19)
--- NOTE | 2017-12-07 15:22 | HHI.DS ---
Discharge Summary Admission Date Dec 06, 2017 at 22:50 Discharge Date: Dec 07, 2017 Admitting Diagnosis Chest pain (1) Chest pain ICD Code: R07.9 - Chest pain, unspecified Diagnosis: Principal (2) Abnormal nuclear stress test ICD Code: R94.39 - Abnormal result of other cardiovascular function study Diagnosis: Principal Procedures Nuclear stress test Brief History - From Admission This is a 52-year-old male with history of CAD, hypertension, hyperlipidemia, diabetes that presents to ED with a complaint of chest discomfort. Patient stated that he developed chest pain yesterday that radiated down his left arm while he was shopping for a new phone. Discomfort was a 4 out of 10. Denies shortness of breath, nausea, or diaphoresis. States it lasted for several hours. Found nothing to worsen. Was given sublingual nitroglycerin about for 5 hours into the discomfort which she states helped a little bit but did not resolve it. Eventually went away on its own overnight. See H&P for further information. CBC/BMP: 12/06/174 12/06/172143 Significant Findings Laboratory Tests Test 12/06/17 21:44 12/07/17 01:00 12/07/17 03:39 Monocytes (%) (Auto) 10.9 % (0.0-8.0) Random Glucose 158 MG/DL (74-106) Estimat Glomerular Filtration Rate 63 ML/MIN (>89) Total Creatine Kinase 348 U/L (39-308) Creatine Kinase MB 3.8 NG/ML (0.5-3.6) 3.8 NG/ML (0.5-3.6) Troponin I LESS THAN 0.02 NG/ML LESS THAN 0.02 NG/ML LESS THAN 0.02 NG/ML Imaging Last Impressions Myocardial Perfusion Scan Nuc Med 12/07/17 0000 Signed Impressions: Service Date/Time: Thursday, December 07, 2017 09:39 - CONCLUSION: 1. Small area of mild reversibility within the lateral wall could be minimal ischemia. 2. Extra fraction 53%%. RISK CATEGORY: Intermediate (1-3%% Annual Mortality Rate) Sriram Castellanos MD Chest X-Ray 12/06/179 Signed Impressions: Service Date/Time: Wednesday, December 06, 2017 21:18 - CONCLUSION: No acute cardiopulmonary disease. Yolande Cross MD Head CT 12/06/17 0000 Signed Impressions: Service Date/Time: Wednesday, December 06, 2017 21:25 - CONCLUSION: Unremarkable study. Yolande Cross MD PE at Discharge GENERAL: in NAD SKIN: Warm and dry. HEAD: Normocephalic. EYES: No scleral icterus. No injection or drainage. NECK: Supple, trachea midline. No JVD or lymphadenopathy. CARDIOVASCULAR: Regular rate and rhythm without murmurs, gallops, or rubs. RESPIRATORY: Breath sounds equal bilaterally. No accessory muscle use. GASTROINTESTINAL: Abdomen soft, non-tender, nondistended. MUSCULOSKELETAL: No cyanosis, or edema. BACK: Nontender without obvious deformity. No CVA tenderness. Pt update on day of discharge Care was transferred to the medical team due to possible cardiac catheterization. Patient was seen by Dr. Arora in which patient did not want a cardiac catheterization and wanted only medical management. Patient was cleared by clinical specialist vascular Dr. Fernandes for discharge. I saw patient since patient was transferred to me from the chest pain center anticipating that he may have a cardiac catheterization. I again went over all his results and recommendations in he stated that he does not want a cardiac catheterization. I stressed to patient that this may lead to a heart attack and he can from this if he does not get early intervention with cardiac catheterization. Patient continued to decline despite recommendations. During my interview the patient denies any chest pain, shortness of breathing, palpitation, lightheadedness dizziness. He stated that chest pain was yesterday resolved. He is asymptomatic.. Patient stated he is back to baseline. Patient also stated that he will be going back to [facility] on Friday and come back to [place] for a couple weeks. He also stated that his is coming down to stay with him Patient anxious to go home. Hospital Course This is a 52-year-old male who is admitted to the chest pain center due to chest pain. He had serial cardiac enzymes done which were negative. He was seen by the clinical specialist vascular and the chest pain center and had a nuclear test done in which it was positive for mild reversibility in the mild lateral wall for ischemia. So patient was transferred to the medical team due to possible cardiac catheterization. Restaurant Managing Partner Dr. Arora was consulted for possible cardiac catheterization. Patient declined cardiac catheterization and only opted medical management. Per clinical specialist vascular okayed to discharge home on Imdur. Patient educated extensively on if he has any recurrence of chest pain or abnormal symptoms he must call 911 stat. I also educated patient on early intervention due to abnormal stress test stating that if intervention is done this may prevent an heart attack I explained to him heart attack can lead to so its better to prevent it. Patient understood and stated that he wants to continue medical management and again declined cardiac catheterization. Patient was put on a beta franny, aspirin, statin, and Imdur. Otherwise his home medication was resumed except atenolol since he was put on metoprolol. During his hospitalization he was chest pain-free and asymptomatic. Pt Condition on Discharge: Stable Discharge Disposition: Discharge Home Discharge Time: > 30 minutes Discharge Instructions DIET: Follow Instructions for: Heart Healthy Diet, Diabetic Diet Activities you can perform: Regular-No Restrictions Follow up Referrals: Cardiology - 1 Week with Gunnar Gastelum MD PCP Follow-up - 1 Week New Medications: Atorvastatin (Atorvastatin) 40 Mg Tab 40 MG PO HS for heart disease, #30 TAB 0 Refills Isosorbide Mononitrate ER (Isosorbide Mononitrate ER) 30 Mg Lexie 30 MG PO DAILY@07 for heart disease, #30 TAB 0 Refills Metoprolol Tartrate (Lopressor) 50 Mg Tab 50 MG PO Q12HR for heart disease, #30 TAB 0 Refills Continued Medications: Aspirin (Aspirin) 325 Mg Tab 325 MG PO DAILY, #30 TAB 0 Refills Glipizide (Glipizide) 5 Mg Tab 5 MG PO BIDAC for Blood Sugar Management, #60 TAB 0 Refills Take 30 minutes before a meal Pantoprazole (Pantoprazole) 40 Mg Tab 1 TAB PO DAILY Valsartan/Hydrochlorothiazide (Valsartan-Hctz 320-25 mg Tab) 320 Mg-25 Mg Tablet 1 TAB PO DAILY Discontinued Medications: Atenolol (Atenolol) 50 Mg Tab 50 MG PO DAILY for Blood Pressure Management, #14 TAB 0 Refills Metformin (Metformin) 1,000 Mg Tab 1000 MG PO DAILY for Blood Sugar Management, #30 TAB 0 Refills With a meal Van,Bonnie Segura MD Dec 07, 2017 15:22
--- NOTE | 2017-12-07 15:22 | HHI.DCPOC ---
Discharge Care Plan Diagnosis: (1) Chest pain Additional Problems If you develop any chest pain or symptoms he will need to call 911 STAT. Goals to Promote Your Health * To prevent worsening of your condition and complications * To maintain your health at the optimal level Directions to Meet Your Goals Take your medications as prescribed Follow your dietary instruction Follow activity as directed Keep your appointments as scheduled Take your immunizations and boosters as scheduled If your symptoms worsen call your PCP, if no PCP go to Urgent Care Center or Emergency Room Smoking is Dangerous to Your Health. Avoid second hand smoke Call the 24-hour hour crisis hotline for domestic abuse at Bonnie Ruby MD Dec 07, 2017 15:22
[2017-12-07] MEDS ORDERED: ATORVASTATIN 40 MG TAB PO SCH (21:00)
[2017-12-08] MEDS ORDERED: ISOSORBIDE MONONITRATE 30 MG TAB PO SCH (07:00)
== END 2017-12-07 15:59 | disposition home or self-care (01) ==
LOC: NEPC 20:52 → NEDA 22:50 → NEPGCP 23:57
PROVIDERS: ADMIT Family Medicine; ATTEND Family Medicine
DX: R07.89 Other chest pain (principal); I45.10 Unspecified right bundle-branch block; R42 Dizziness and giddiness; R94.39 Abnormal result of other cardiovascular function study; R51 Headache; I25.10 Atherosclerotic heart disease of native coronary artery without angina pectoris; I10 Essential (primary) hypertension; E11.9 Type 2 diabetes mellitus without complications; E78.5 Hyperlipidemia, unspecified; K21.9 Gastro-esophageal reflux disease without esophagitis; Z95.5 Presence of coronary angioplasty implant and graft; Z79.84 Long term (current) use of oral hypoglycemic drugs; Z79.899 Other long term (current) drug therapy; Z79.82 Long term (current) use of aspirin
CPT/HCPCS: 70450; 71045; 78452; 80048; 82550; 82552; 82948; 83735; 84484; 85025; 85610; 85730; 93005; 93017; 99285; A9502; G0378; J1815; J2785